=== PATIENT | male | born 1975 | race Caucasian/White ===

== ENCOUNTER 2020-06-23 00:42 | Observation (INO) ==
[2020-06-23] MEDS ORDERED: ceFAZolin 2000MG 2,000 MG/15 ML SYR IV STA (00:58)
[2020-06-23] MEDS ORDERED: DIPHTHERIA/TETANUS/PERTUSSIS 0.5 ML SYR/VIAL IM ONE (01:03)
[2020-06-23 01:31] LABS: Hematocrit (blood only) 41.8 % (42-52); Hemoglobin 14.5 g/dL (14.0-18.0); Mean Corpuscular Hemoglobin 30.3 pg (25-34); Mean Corpuscular Hgb Conc 34.7 g/dL (32-36); Mean Corpuscular Volume 87.4 fL (80-100); RDW Coefficient of Variation 12.7 % (11.5-14.5); RDW Standard Deviation 40.6 fL (36.4-46.3); Red Blood Count 4.78 M/uL (4.7-6.1); White Blood Count 10.49 K/uL (4.8-10.8)
[2020-06-23 01:32] LABS: Basophils # (auto) 0.03 K/uL (0-0.2); Basophils % (auto) 0.3 %; Eosinophils # (auto) 0.45 K/uL (0-0.5); Eosinophils % (auto) 4.3 %; Immature Granulocytes # (auto) 0.02 K/uL (0.00-0.02); Immature Granulocytes % (auto) 0.2 %; Lymphocytes # (auto) 4.35 K/uL (1.2-3.4); Lymphocytes % (auto) 41.5 %; Mean Platelet Volume 8.7 fL (7.4-10.4); Monocytes # (auto) 0.88 K/uL (0.11-0.59); Monocytes % (auto) 8.4 %; Neutrophils # (auto) 4.76 K/uL (1.4-6.5); Neutrophils % (auto) 45.3 %; Platelet Count 313 K/uL (130-400)
[2020-06-23 01:43] LABS: Albumin Level 4.3 gm/dl (3.4-5.0); BUN Creatinine Ratio 12.7 (10-20); Calcium 8.3 mg/dl (8.5-10.1); Creatinine Clr Calc Pharmacy 100.9 ml/min; Est GFR (African American) 96.2; Potassium 3.1 mmol/L (3.5-5.1)
[2020-06-23 01:46] LABS: Albumin Globulin Ratio 1.3 (0.9-2); Bilirubin,Total 0.5 mg/dl (0.2-1); Globulin 3.3 gm/dl (2.5-4.0); Total Protein 7.6 gm/dl (6.4-8.2)
[2020-06-23] MEDS ORDERED: fentaNYL citrate 100 MCG/2 ML VIAL ONE ×2 (02:57→05:15)
[2020-06-23] MEDS ORDERED: DEXAMETHASONE SOD INJ 4 MG/ML VIAL ONE (02:57)
[2020-06-23] MEDS ORDERED: PROPOFOL IV EMULSION 10 MG/ML 20 ML VIAL IV ONE (02:57)
[2020-06-23] MEDS ORDERED: ONDANSETRON INJ 2 MG/ML 2 ML VIAL ONE (02:57)
[2020-06-23] MEDS ORDERED: SUCCINYLCHOLINE CHLORIDE 20 MG/ML 10 ML VIAL IV ONE (02:57)
--- NOTE | 2020-06-23 03:11 | Anesthesiology Consultation ---
Date of Service June 23, 2020 Assessment & Plan (1) Encounter for pre-operative examination: Chart Review Chart Review: Acceptable Risk for Surgery and Patient NOT seen in Pre Admission Testing Anesthesia plan explained to patient and . signed the consent on patient's behalf as patient currently intoxicated. All questions answered. Consults Requested none covid neg 06/23/2020 History Surgery Operation Date: 06/23/20 03:30 Proposed Procedures p Open Reduction Internal Fixation Hand(Left) - Hung Nuñez DO s Incision and Drainage Extremity(Left) - Hung Nuñez DO Height/Weight Height: 5 ft 10 in Weight: 94.8 kg Allergies Allergy/AdvReac Type Severity Reaction Status Date / Time No Known Allergies Allergy Verified 06/23/20 01:03 Medications Home Medications Medication Instructions Recorded Confirmed Last Taken atorvastatin 40 mg PO HS 10/10/19 06/23/20 06/22/20 acetaminophen [Tylenol Extra 500 - 1,000 mg PO Q6H PRN 12/03/19 06/23/20 Unknown Strength] turmeric root extract 500 mg PO BID 12/03/19 06/23/20 06/22/20 NPO Date Last Intake of Fluids: 06/23/20 Time Last Intake of Fluids: 00:30 Date Last Intake of Solids: 06/22/20 Time Last Intake of Solids: 18:00 Social History Smoking Status: Never smoker Do You Dip or Chew Tobacco: No Hx Alcohol Use: Yes Hx Substance Use: No Physical Exam Vital Signs Last Vital Signs Temp 36.6 C 06/23/20 00:50 Pulse 106 H 06/23/20 03:00 Resp 21 06/23/20 03:00 BP 127/81 06/23/20 03:00 Pulse Ox 96 06/23/20 03:00 Testing Laboratory Results 06/23/20 00:59 06/23/20 00:59
[2020-06-23] MEDS ORDERED: ePHEDrine sulfate 50 MG/ML AMP IV PRN (03:22)
[2020-06-23] MEDS ORDERED: ATROPINE SULFATE 0.1 MG/ML 10ML SYR IV PRN (03:22)
[2020-06-23] MEDS ORDERED: ONDANSETRON INJ 2 MG/ML 2 ML VIAL IV PRN ×2 (03:22→05:12)
[2020-06-23] MEDS ORDERED: HYDROmorphone INJ 1 MG/ML SYRINGE IV PRN (03:22)
[2020-06-23] MEDS ORDERED: BACITRACIN INJ 50,000 UNIT VIAL ONE (03:32)
[2020-06-23] MEDS ORDERED: BUPIVACAINE 0.5 % 5 MG/1 ML MPF 30ML VIAL ONE (03:32)
--- NOTE | 2020-06-23 03:51 | History & Physical Bridge Note ---
Date of Service June 23, 2020 History & Physical Bridge Note I have examined the patient, reviewed the History & Physical and in the interval since the performance of the History & Physical I have noted the following changes of clinical significance: Will require open reduction left hand 2/3/4 metacarpophalangeal joint dislocations in OR.
[2020-06-23] MEDS ORDERED: NEOSTIGMINE METHYLSULFATE 5 MG/5 ML SYR ONE (04:21)
[2020-06-23] MEDS ORDERED: GLYCOPYRROLATE 0.2 MG/ML VIAL ONE (04:21)
[2020-06-23] MEDS ORDERED: ROCURONIUM BROMIDE 10 MG/ML 5 ML VIAL IV ONE (04:21)
--- NOTE | 2020-06-23 05:04 | Post Operative Brief Note ---
Immediate Post Op Note v1 Date of Surgery June 23, 2020 Pre & Post Diagnosis Operation Date: 06/23/20 03:30 Preop diagnosis: Left hand open dislocations of the second, third and fourth metacarpal phalangeal joints, complex laceration left hand volar palm 10 cm Postop diagnosis:Left hand open dislocations of the second, third and fourth metacarpal phalangeal joints, complex laceration left hand volar palm 10 cm I identified the patient and participated in the time-out.: Yes Procedure Operation Date: 06/23/20 03:30 Procedure: 1. Open reduction left hand second, third and fourth metacarpal phalangeal joint dislocations, 2. Irrigation and debridement open dislocations left hand second, third and fourth metacarpal phalangeal joints, 3. Repair complex laceration left hand volar palm 10 cm in length Surgeon Hnug Nuñez DO Business Instructor None Estimated Blood Loss 3 Findings Consistent with Post-Op Diagnosis Specimens None Anesthesia Type General Complications none Disposition Accompanied Patient To Recovery: No Disposition: Recovery Room
[2020-06-23] MEDS ORDERED: oxyCODONE/ACETAMINOPHEN 5mg/325mg TAB PO PRN (05:12)
[2020-06-23] MEDS: fentaNYL citrate 100 MCG/2 ML VIAL IV PRN ×4 (05:15→05:30)
--- NOTE | 2020-06-23 05:17 | Consultation Report ---
DATE OF CONSULTATION: 06/23/2020 EMERGENCY ROOM CONSULTATION TIME: 3:00 a.m. PERTINENT HISTORY: This is a 44-year-old right-hand dominant gentleman who had been drinking this evening until about 12:00 or 12:30. This evening he had a grand total of approximately 12 beers. He fell on his deck and on his outstretched right upper extremity, hyperextended, second, third and fourth metacarpophalangeal joints resulting in open dislocation of the second, third, and fourth metacarpophalangeal joints. The metacarpal heads then lodged in place in open position, exposed. Then transported to [facility], seen and evaluated by the Emergency Department physician. Radiographs were obtained, orthopedics was consulted. The patient had no loss of consciousness, no head or neck trauma. Landed in a relatively clean environment. It was cleansed at home and wrapped in gauze at the ER. PAST MEDICAL HISTORY: Hypercholesterolemia, reflux, possible alcoholism. PAST SURGICAL HISTORY: Denies. ALLERGIES: No known drug allergies. MEDICATIONS: Atorvastatin, naproxen, ondansetron, acetaminophen, turmeric root extract. SOCIAL HISTORY: He is , works for [employer]. He denies tobacco use. Drinks alcohol regularly. Denies drug use. PHYSICAL EXAMINATION: This is a clearly intoxicated 44-year-old gentleman with present at bedside, slurred speech, and does not answer questions without multiple prompts. Focused exam of the right hand demonstrates gauze bandage in place. Fingers are pink and warm. Radial pulse 2/4. Radial, ulnar, and median nerve sensory and motor function are intact to the level of the wrist; however, he has some disturbance at the second, third, and fourth digits due to open dislocations of the second, third, and fourth metacarpal heads to the volar aspect of the palm. Locked in place and he has some spasm preventing easy reduction. Skin is well perfused. Obvious deformity. IMAGING DATA: Radiographs reflect second, third and fourth metacarpophalangeal joint dislocations with volar extrusion of the metacarpal heads through the soft tissue. No other obvious fracture is noted. IMPRESSION: Right hand open second, third, and fourth metacarpophalangeal joint dislocations without evidence of fracture. Soft tissue swelling, mild. RECOMMENDATION: Open reduction under anesthesia of second, third and fourth metacarpophalangeal joint dislocations with irrigation and debridement of the open dislocations, possible percutaneous pinning as necessary. Discussed all potential risks, benefits, complications, alternatives, rehab, possibility of loss of function, possibility of infection, need for secondary surgery, was discussed with the patient and his who was present at the bedside. They understood the potential risks, signed consent. Currently n.p.o. To OR when available.
--- NOTE | 2020-06-23 06:28 | Anesthesiology Progress Note ---
Date of Service June 23, 2020 Anesthesia Post Procedure Vital Signs Vital Signs: Temp Pulse Pulse Resp BP BP Pulse Ox 06/23/20 05:45 36.4 C L 919 H 14 124/82 99 06/23/20 05:40 91 H 14 126/82 100 06/23/20 05:30 97 H 14 134/79 100 06/23/20 05:20 83 14 126/86 99 06/23/20 05:11 36.4 C L 101 H 14 135/71 99 06/23/20 03:00 106 H 21 127/81 96 06/23/20 02:45 107 H 23 120/82 97 06/23/20 02:30 108 H 22 127/94 98 06/23/20 02:15 101 H 21 131/88 95 06/23/20 02:00 101 H 16 123/92 98 06/23/20 01:45 96 H 17 134/92 97 06/23/20 01:30 102 H 18 133/95 100 06/23/20 01:15 98 H 12 133/95 98 06/23/20 00:50 36.6 C 92 H 20 132/92 99 Pain Intensity Left Hand: Pain Intensity: 7 Transfer of Care Handoff Completed per policy Notes Mental Status: alert / awake / arousable and participated in evaluation Patient Amnestic to Procedure: Yes Nausea / Vomiting: adequately controlled Pain: adequately controlled Airway Patency, RR, SpO2: stable & adequate BP & HR: stable & adequate Hydration State: stable & adequate Anesthetic Complications: no major complications apparent and Pt Satisfied with anesthetic care
[2020-06-23] MEDS: SODIUM CHLORIDE 0.9% 1000ML 1,000 ML IV SCH ×2 (06:30→16:02)
--- NOTE | 2020-06-23 07:26 | Fluoroscopy Report ---
FL hand LT 2V CLINICAL HISTORY: Closed reduction. COMPARISON STUDY: Left hand radiographs June 23, 2020. FLUOROSCOPY TIME: 5.9 seconds. FLUOROSCOPIC IMAGES: 2. FINDINGS: Fluoroscopy was performed during reduction of the left second, third and fourth metacarpoph alangeal joint dislocations. Alignment appears anatomic on this exam. Sensitivity for detection of fr actures is diminished on this exam but none are identified. IMPRESSION: Fluoroscopy provided during reduction of the left second, third and fourth metacarpophal angeal joint dislocations. ACT 112: Negative or not required by law. Electronically signed by: Agustín Miller M.D. 06/23/2020 7:25 AM
--- NOTE | 2020-06-23 07:35 | Emergency Department Note ---
Impression & Plan Dislocation of MCP joint of hand, Alcohol intoxication, Fall ED Provider Note NAME: KATHERYN SAM AGE: 44 SEX: M ARRIVES VIA: Walk-In INFORMANT: Patient, ED PROVIDER(S): Bree Del Angel DO CHIEF COMPLAINT: Left hand pain/ fall PLAN: Disposition: to the OR with Dr. Nuñez Condition: stable MEDICAL DECISION MAKING: This is a 44-year-old male patient who was drinking alcohol tonight and tripped and fell on an outstretched left hand causing an open dislocation of the metacarpal phalangeal joints. The patient denies injuring any other part of his body during this fall. X-rays confirm no acute fractures. The case was discussed with Dr. Nuñez and he will take the patient the OR for washout and repair of this open dislocation Triage Nursing notes reviewed and agree them. Additional history obtained from the patient's who was at the bedside Vital Signs: reviewed and unremarkable Differential diagnosis: Open fracture, hand fracture, dislocation ER treatment provided: IV cefazolin; Adacel Diagnostics interpreted by me: Imaging studies: As per my interpretation-left hand x-ray: Volar dislocation of the second third and fourth metacarpal phalangeal joint Consultation(s): Dr. Nuñez from orthopedics HPI: 44/M arrives for evaluation of left hand injury. The patient suffered a fall tonight on an outstretched left hand onto a concrete slab. The patient had been drinking a moderate amount of alcohol. He did not strike his head or lose consciousness. ROS: See above HPI for pertinent positives & negatives. A total of 10 systems reviewed and were otherwise negative. PAST MEDICAL HISTORY:Hypercholesterolemia SOCIAL HISTORY:The patient is ; he drinks alcohol; he does [employer] work for a living HOME MEDICATIONS:See list ALLERGIES:None VITALS:See Below PHYSICAL EXAMINATION: HEENT: Head - normocephalic and atraumatic. Pupils are equal, round, and reactive to light. There is moderate scleral injection extraocular eye muscles are intact and sclera are anicteric. Ears - bilaterally patent canals with no evidence of hemotympanum. Nose - moist nasal mucosa without evidence of trauma or discharge. Mouth - moist buccal mucosa with no trauma to the teeth or signs of malocclusion. Neck: The neck is supple and there is no pain to palpation over the posterior cervical spine and no obvious step-offs or deformities. There is no JVD or tracheal deviation. Chest: There are no signs of deformities, contusions or abrasions to the chest wall. There is no obvious crepitus or paradoxical chest rise. Heart: Regular, rate, and rhythm. There is a normal S1 and S2 with no murmurs, clicks, or gallops appreciated. Lungs: Clear to auscultation bilaterally with no wheezes, rales, or rhonchi. Abdomen: Soft, completely nontender, nondistended, with good bowel sounds. There is no sign of trauma such as contusions, abrasions or penetrations. There are no palpable pulsatile masses or hepatosplenomegaly. There is no guarding, rigidity, or rebound noted. Pelvis: Stable to rock and compression. Extremities: There is an abrasion to the patient's left knee. The left hand is obviously deformed. He has open dislocations to the second third and fourth metacarpophalangeal joints that protrude through the volar surface of the hand. There is minimal bleeding. There is a ring on the ring finger that will need removed. The third and fourth digits of 5-6-second capillary refill and they are cold to touch. The second digit has normal capillary refill and is warm to touch. Neuro: The patient is awake and alert and easily able to follow commands. Muscle strength is 5 out of 5 in all 4 extremities. Otherwise, neuro exam is unremarkable. ED COURSE: The patient was immediately evaluated in room B1 upon EMS arrival. The hand was quickly evaluated and x-rayed. Daily and soaked gauze was applied to the exposed bones and wrapped with a bulky dressing. The ring was successfully removed. The digits were positioned in such a way that the capillary refill improved in the third and fourth digit in the digits were then warm to touch. An IV lock was initiated Laboratory studies were drawn as above. The patient was given Adacel and 2 g of IV cefazolin. 0120: I discussed the case with Dr. Nuñez. He will come to the emergency department to take the patient to the OR for a washout and repair. Bree Del Angel DO Past Med/Surg History Social History Smoking Status: Never smoker Tobacco Type: Cigarettes Second Hand Exposure: No; Do You Dip or Chew Tobacco: No; Tobacco Cessation Education Requested by Patient: No Hx Alcohol Use: Yes Alcohol type: beer Hx Substance Use: No Preferred Language: [place] Beliefs That Will Affect Care: None Current Living Situation: Family Other Information That Helps Us Care for You: No Feels Safe at Home: Yes Safety Concerns: Feels Safe At This Time Assistive Devices: None Allergies Allergies Allergy/AdvReac Type Severity Reaction Status Date / Time No Known Allergies Allergy Verified 06/23/20 01:03 Home Meds Home Medications Medication Instructions Recorded Confirmed atorvastatin 40 mg PO HS 10/10/19 06/23/20 acetaminophen [Tylenol Extra 500 - 1,000 mg PO Q6H PRN 12/03/19 06/23/20 Strength] turmeric root extract 500 mg PO BID 12/03/19 06/23/20 Results & Data (ED) Vital Signs Vital Signs - 24 hr 06/23/20 00:50 06/23/20 01:15 06/23/20 01:30 Temperature 36.6 C Temperature Source Oral Pulse Rate 92 H Pulse Rate [Apical] 98 H 102 H Pulse Rhythm Regular Pulse Strength Normal Respiratory Rate 20 12 18 Respiratory Effort / Characteristics Non-Labored Spontaneous Non-Labored Spontaneous Respiratory Depth Normal Normal Normal Respiratory Pattern Blood Pressure 132/92 Blood Pressure [Right Arm] 133/95 133/95 Blood Pressure Mean 105 Blood Pressure Mean [Right Arm] 107 107 Blood Pressure Position Sitting Blood Pressure Position [Right Arm] Pulse Oximetry 99 98 100 Oxygen Delivery Method Room Air Room Air Room Air Oxygen Flow Rate Sepsis Recent Fever Within 48 Hours No Sepsis New/Unexplained Change in Mental Status N/A Sepsis Action Taken by Nursing No Action Required 06/23/20 01:45 06/23/20 02:00 06/23/20 02:15 Temperature Temperature Source Pulse Rate Pulse Rate [Apical] 96 H 101 H 101 H Pulse Rhythm Pulse Strength Respiratory Rate 17 16 21 Respiratory Effort / Characteristics Non-Labored Spontaneous Respiratory Depth Normal Normal Normal Respiratory Pattern Blood Pressure Blood Pressure [Right Arm] 134/92 123/92 131/88 Blood Pressure Mean Blood Pressure Mean [Right Arm] 106 102 102 Blood Pressure Position Blood Pressure Position [Right Arm] Pulse Oximetry 97 98 95 Oxygen Delivery Method Room Air Room Air Room Air Oxygen Flow Rate Sepsis Recent Fever Within 48 Hours Sepsis New/Unexplained Change in Mental Status Sepsis Action Taken by Nursing 06/23/20 02:30 06/23/20 02:45 06/23/20 03:00 Temperature Temperature Source Pulse Rate Pulse Rate [Apical] 108 H 107 H 106 H Pulse Rhythm Pulse Strength Respiratory Rate 22 23 21 Respiratory Effort / Characteristics Respiratory Depth Normal Normal Normal Respiratory Pattern Blood Pressure Blood Pressure [Right Arm] 127/94 120/82 127/81 Blood Pressure Mean Blood Pressure Mean [Right Arm] 105 94 96 Blood Pressure Position Blood Pressure Position [Right Arm] Pulse Oximetry 98 97 96 Oxygen Delivery Method Room Air Room Air Room Air Oxygen Flow Rate Sepsis Recent Fever Within 48 Hours Sepsis New/Unexplained Change in Mental Status Sepsis Action Taken by Nursing 06/23/20 05:11 Temperature 36.4 C L Temperature Source Axillary Pulse Rate Pulse Rate [Apical] 101 H Pulse Rhythm Pulse Strength Respiratory Rate 14 Respiratory Effort / Characteristics Non-Labored Spontaneous Respiratory Depth Normal Respiratory Pattern Regular Blood Pressure Blood Pressure [Right Arm] 135/71 Blood Pressure Mean Blood Pressure Mean [Right Arm] 92 Blood Pressure Position Blood Pressure Position [Right Arm] Semi-fowlers Pulse Oximetry 99 Oxygen Delivery Method Oxymask Oxygen Flow Rate 10 Sepsis Recent Fever Within 48 Hours Sepsis New/Unexplained Change in Mental Status Sepsis Action Taken by Nursing Laboratory Data Result diagrams: 06/23/20 00:59 06/23/20 00:59 Lab Results 06/23/20 06/23/20 06/23/20 Range/Units 00:59 00:59 00:59 WBC 10.49 (4.8-10.8) K/uL RBC 4.78 (4.7-6.1) M/uL Hgb 14.5 (14.0-18.0) g/dL Hct 41.8 L (42-52) % MCV 87.4 (80-100) fL MCH 30.3 (25-34) pg MCHC 34.7 (32-36) g/dL RDW Std Deviation 40.6 (36.4-46.3) fL RDW Coeff of Melani 12.7 (11.5-14.5) % Plt Count 313 (130-400) K/uL MPV 8.7 (7.4-10.4) fL Immature Gran % (Auto) 0.2 % Neut % (Auto) 45.3 % Lymph % (Auto) 41.5 % [place] % (Auto) 8.4 % Eos % (Auto) 4.3 % Baso % (Auto) 0.3 % Neut # (Auto) 4.76 (1.4-6.5) K/uL Lymph # (Auto) 4.35 H (1.2-3.4) K/uL [place] # (Auto) 0.88 H (0.11-0.59) K/uL Eos # (Auto) 0.45 (0-0.5) K/uL Baso # (Auto) 0.03 (0-0.2) K/uL Immature Gran # (Auto) 0.02 (0.00-0.02) K/uL Sodium 139 (136-145) mmol/L Potassium 3.1 L (3.5-5.1) mmol/L Chloride 105 (98-107) mmol/L Carbon Dioxide 27 (21-32) mmol/L Anion Gap 7.0 (3-11) BUN 14 (7-18) mg/dl Creatinine 1.08 (0.6-1.4) mg/dl Est Cr Clr Drug Dosing 100.9 ml/min Est GFR ( Amer) 96.2 Est GFR (Non-Af Amer) 83.0 BUN/Creatinine Ratio 12.7 (10-20) Glucose 126 H (70-99) mg/dl Calcium 8.3 L (8.5-10.1) mg/dl Total Bilirubin 0.5 (0.2-1) mg/dl AST 24 (15-37) U/L ALT 37 (12-78) U/L Alkaline Phosphatase 78 (45-117) U/L Total Protein 7.6 (6.4-8.2) gm/dl Albumin 4.3 (3.4-5.0) gm/dl Globulin 3.3 (2.5-4.0) gm/dl Albumin/Globulin Ratio 1.3 (0.9-2) Ethyl Alcohol mg/dL 304.0 H (0-3) mg/dl COVID-19 Eval Order SARS-CoV-2, RNA, NAAT (NEGATIVE) 06/23/20 06/23/20 Range/Units 01:38 01:38 WBC (4.8-10.8) K/uL RBC (4.7-6.1) M/uL Hgb (14.0-18.0) g/dL Hct (42-52) % MCV (80-100) fL MCH (25-34) pg MCHC (32-36) g/dL RDW Std Deviation (36.4-46.3) fL RDW Coeff of Melani (11.5-14.5) % Plt Count (130-400) K/uL MPV (7.4-10.4) fL Immature Gran % (Auto) % Neut % (Auto) % Lymph % (Auto) % [place] % (Auto) % Eos % (Auto) % Baso % (Auto) % Neut # (Auto) (1.4-6.5) K/uL Lymph # (Auto) (1.2-3.4) K/uL [place] # (Auto) (0.11-0.59) K/uL Eos # (Auto) (0-0.5) K/uL Baso # (Auto) (0-0.2) K/uL Immature Gran # (Auto) (0.00-0.02) K/uL Sodium (136-145) mmol/L Potassium (3.5-5.1) mmol/L Chloride (98-107) mmol/L Carbon Dioxide (21-32) mmol/L Anion Gap (3-11) BUN (7-18) mg/dl Creatinine (0.6-1.4) mg/dl Est Cr Clr Drug Dosing ml/min Est GFR ( Amer) Est GFR (Non-Af Amer) BUN/Creatinine Ratio (10-20) Glucose (70-99) mg/dl Calcium (8.5-10.1) mg/dl Total Bilirubin (0.2-1) mg/dl AST (15-37) U/L ALT (12-78) U/L Alkaline Phosphatase (45-117) U/L Total Protein (6.4-8.2) gm/dl Albumin (3.4-5.0) gm/dl Globulin (2.5-4.0) gm/dl Albumin/Globulin Ratio (0.9-2) Ethyl Alcohol mg/dL (0-3) mg/dl COVID-19 Eval [facility] SARS-CoV-2, RNA, NAAT NEGATIVE (NEGATIVE) Administered Medications Acetaminophen (Acetaminophen 325 Mg Tab) 650 mg PO Q6H PRN PRN Reason: Fever or Headache Stop: 07/23/20 05:11 Last Admin: 06/24/20 08:38 Dose: 650 mg Documented by: [id number] Admin: 06/23/20 08:54 Dose: 650 mg Documented by: [id number] Aspirin (Aspirin 81 Mg Ectab) 81 mg PO QAM [facility] Stop: 07/23/20 08:59 Last Admin: 06/24/20 07:50 Dose: 81 mg Documented by: [id number] Admin: 06/23/20 08:55 Dose: Not Given Documented by: [id number] Docusate Sodium (Docusate Sodium 100 Mg Cap) 100 mg PO BID [facility] Stop: 07/23/20 08:59 Last Admin: 06/24/20 07:50 Dose: Not Given Documented by: [id number] Admin: 06/23/20 20:29 Dose: Not Given Documented by: [id number] Admin: 06/23/20 08:55 Dose: Not Given Documented by: [id number] Sodium Chloride (Nss 1000ml) 1,000 mls @ 100 mls/hr IV .Q10H [facility] Stop: 07/23/20 05:14 Last Admin: 06/24/20 01:15 Dose: 100 mls/hr Documented by: [id number] Infusion: 06/24/20 01:15 Dose: 100 mls/hr Documented by: [id number] Admin: 06/23/20 16:02 Dose: 100 mls/hr Documented by: [id number] Infusion: 06/23/20 16:02 Dose: 100 mls/hr Documented by: [id number] Infusion: 06/23/20 14:07 Dose: 100 mls/hr Documented by: [id number] Admin: 06/23/20 06:30 Dose: 100 mls/hr Documented by: [id number] Ketorolac Tromethamine (Ketorolac 30 Mg/Ml Vial) 30 mg IV Q8 PRN PRN Reason: Pain Stop: 06/28/20 05:11 Last Admin: 06/24/20 07:50 Dose: 30 mg Documented by: [id number] Admin: 06/23/20 16:01 Dose: 30 mg Documented by: [id number] Admin: 06/23/20 08:16 Dose: 30 mg Documented by: [id number] Discontinued Medications Bacitracin (Bacitracin Inj 50,000 Unit Vial) Confirm Administered Dose 100,000 units .ROUTE .STK-MED ONE Stop: 06/23/20 03:33 Last Admin: 06/23/20 04:45 Dose: 50,000 units Documented by: [id number] Bupivacaine HCl (Bupivacaine 0.5 % 5 Mg/1 Ml Mpf 30ml Vial) Confirm Administered Dose 30 ml .ROUTE .STK-MED ONE Stop: 06/23/20 03:33 Last Admin: 06/23/20 05:18 Dose: 30 ml Documented by: [id number] Diphtheria/Pertussis/Tetanus Vacc (Diphtheria/Tetanus/Pertussis 0.5 Ml Syr/Vial) 0.5 ml IM .ONCE ONE Stop: 06/23/20 01:04 Last Admin: 06/23/20 01:11 Dose: 0.5 ml Documented by: [id number] Fentanyl Citrate (Fentanyl Citrate 100 Mcg/2 Ml Vial) 25 mcg IV Q5M PRN PRN Reason: PACU Use Only-Pain Stop: 06/23/20 11:22 Last Admin: 06/23/20 05:30 Dose: 25 mcg Documented by: [id number] Admin: 06/23/20 05:25 Dose: 25 mcg Documented by: [id number] Admin: 06/23/20 05:20 Dose: 25 mcg Documented by: [id number] Admin: 06/23/20 05:15 Dose: 25 mcg Documented by: [id number] Fentanyl Citrate (Fentanyl Citrate 100 Mcg/2 Ml Vial) Confirm Administered Dose 100 mcg .ROUTE .STK-MED ONE Stop: 06/23/20 05:16 Last Admin: 06/23/20 06:02 Dose: Not Given Documented by: [id number] Cefazolin Sodium (Ancef 2000mg) 2,000 mg in 15 mls @ 3.75 mls/min IV NOW STA Stop: 06/23/20 01:01 Last Admin: 06/23/20 01:02 Dose: 3.75 mls/min Documented by: [id number] Cefazolin Sodium (Ancef 2000mg) 2,000 mg in 15 mls @ 3.75 mls/min IV Q8H TIO; Protocol Stop: 06/24/20 08:59 Last Admin: 06/24/20 01:44 Dose: 3.75 mls/min Documented by: [id number] Admin: 06/23/20 17:20 Dose: 3.75 mls/min Documented by: [id number] Admin: 06/23/20 08:55 Dose: 3.75 mls/min Documented by: [id number] Discharge Plan Visit Data Chief Complaint: Hand Injury/Pain Stated Complaint: BONE THROUGH L HAND-TRIPPED AND FELL ED Provider: Bree Del Angel Discharge Problem: Dislocation of MCP joint of hand, Alcohol intoxication, Fall Patient Disposition: Admitted As Inpatient Discharge Instructions Interventions: ED Discharge Assessment Last Done: 06/23/20 03:11 Discharge Problem: Dislocation of MCP joint of hand Qualifiers: Encounter type: initial encounter Qualified Code(s): S63.269A - Dislocation of metacarpophalangeal joint of unspecified finger, initial encounter Alcohol intoxication Qualifiers: Complication of substance-induced condition: with unspecified complication Qualified Code(s): F10.929 - Alcohol use, unspecified with intoxication, unspecified Fall Qualifiers: Encounter type: initial encounter Qualified Code(s): W19.XXXA - Unspecified fall, initial encounter
--- NOTE | 2020-06-23 07:53 | XRay Report ---
XR hand LT min 3V routine CLINICAL HISTORY: hand fracture. Open injury. COMPARISON: Left hand radiographs February 23, 2018. FINDINGS: Note is made of left second, third and fourth metacarpophalangeal joint dislocations. Spec ifically, the proximal phalanges of these digits are dislocated dorsally with respect to the metacarp al heads. There is suspected associated volar extrusion of several metacarpal heads. No additional fr actures are identified. Tiny radiodensities project over the left hand. This may reflect debris, like ly on the hand. IMPRESSION: Left second, third and fourth metacarpophalangeal joint dislocations with suspected vola r extrusion of several metacarpal heads which could be correlated with physical exam. No additional f ractures identified. ACT 112: Negative or not required by law. Electronically signed by: Agustín Miller M.D. 06/23/2020 7:51 AM
[2020-06-23] MEDS: KETOROLAC 30 MG/ML VIAL IV PRN ×2 (08:16→16:01)
--- NOTE | 2020-06-23 08:37 | Orthopedic Progress Note ---
Date of Service June 23, 2020 Assessment & Plan (1) Dislocation of MCP joint of hand: Admission and Anticipated Discharge Date Admission Date: 44 yo male stable POD #1 s/p left hand open reduction 2nd, 3rd, and 4th MCP joint dislocations and wound closure 1. Med management 2. DVT prophylaxis- SCDs 3. PT/OT 4. D/C planning- home today/tomorrow Subjective Pt resting in bed, moderate pain left hand Physical Exam Physical Exam: Dressing/splint intact left hand Results & Data ([facility]) Vital Signs (Past 12 Hours) Vital Signs Temp Pulse Pulse Pulse Resp BP BP 06/23/20 08:08 99 H 16 115/77 06/23/20 07:13 99 H 16 135/82 06/23/20 06:30 36.9 C 99 H 16 132/83 06/23/20 06:14 36.4 C L 88 16 132/84 06/23/20 05:45 36.4 C L 919 H 14 124/82 06/23/20 05:40 91 H 14 126/82 06/23/20 05:30 97 H 14 134/79 06/23/20 05:20 83 14 126/86 06/23/20 05:11 36.4 C L 101 H 14 135/71 06/23/20 03:00 106 H 21 127/81 06/23/20 02:45 107 H 23 120/82 06/23/20 02:30 108 H 22 127/94 06/23/20 02:15 101 H 21 131/88 06/23/20 02:00 101 H 16 123/92 06/23/20 01:45 96 H 17 134/92 06/23/20 01:30 102 H 18 133/95 06/23/20 01:15 98 H 12 133/95 06/23/20 00:50 36.6 C 92 H 20 132/92 Pulse Ox 06/23/20 08:08 97 06/23/20 07:13 97 06/23/20 06:30 99 06/23/20 06:14 100 06/23/20 05:45 99 06/23/20 05:40 100 06/23/20 05:30 100 06/23/20 05:20 99 06/23/20 05:11 99 06/23/20 03:00 96 11/08/20 02:45 97 06/23/20 02:30 98 06/23/20 02:15 95 06/23/20 02:00 98 06/23/20 01:45 97 06/23/20 01:30 100 06/23/20 01:15 98 06/23/20 00:50 99 Laboratory Results 06/23/20 06/23/20 06/23/20 Range/Units 01:38 01:38 00:59 WBC (4.8-10.8) K/uL RBC (4.7-6.1) M/uL Hgb (14.0-18.0) g/dL Hct (42-52) % MCV (80-100) fL MCH (25-34) pg MCHC (32-36) g/dL RDW Std Deviation (36.4-46.3) fL RDW Coeff of Melani (11.5-14.5) % Plt Count (130-400) K/uL MPV (7.4-10.4) fL Immature Gran % (Auto) % Neut % (Auto) % Lymph % (Auto) % [place]oshone % (Auto) % Eos % (Auto) % Baso % (Auto) % Neut # (Auto) (1.4-6.5) K/uL Lymph # (Auto) (1.2-3.4) K/uL Shoshone # (Auto) (0.11-0.59) K/uL Eos # (Auto) (0-0.5) K/uL Baso # (Auto) (0-0.2) K/uL Immature Gran # (Auto) (0.00-0.02) K/uL Sodium (136-145) mmol/L Potassium (3.5-5.1) mmol/L Chloride (98-107) mmol/L Carbon Dioxide (21-32) mmol/L Anion Gap (3-11) BUN (7-18) mg/dl Creatinine (0.6-1.4) mg/dl Est Cr Clr Drug Dosing ml/min Est GFR ( Amer) Est GFR (Non-Af Amer) BUN/Creatinine Ratio (10-20) Glucose (70-99) mg/dl Calcium (8.5-10.1) mg/dl Total Bilirubin (0.2-1) mg/dl AST (15-37) U/L ALT (12-78) U/L Alkaline Phosphatase (45-117) U/L Total Protein (6.4-8.2) gm/dl Albumin (3.4-5.0) gm/dl Globulin (2.5-4.0) gm/dl Albumin/Globulin Ratio (0.9-2) Ethyl Alcohol mg/dL 304.0 H (0-3) mg/dl COVID-19 Eval [facility] SARS-[facility]-2, RNA, NAAT NEGATIVE (NEGATIVE) 06/23/20 06/23/20 Range/Units 00:59 00:59 WBC 10.49 (4.8-10.8) K/uL RBC 4.78 (4.7-6.1) M/uL Hgb 14.5 (14.0-18.0) g/dL Hct 41.8 L (42-52) % MCV 87.4 (80-100) fL MCH 30.3 (25-34) pg MCHC 34.7 (32-36) g/dL RDW Std Deviation 40.6 (36.4-46.3) fL RDW Coeff of Melani 12.7 (11.5-14.5) % Plt Count 313 (130-400) K/uL MPV 8.7 (7.4-10.4) fL Immature Gran % (Auto) 0.2 % Neut % (Auto) 45.3 % Lymph % (Auto) 41.5 % [place]oshone % (Auto) 8.4 % Eos % (Auto) 4.3 % Baso % (Auto) 0.3 % Neut # (Auto) 4.76 (1.4-6.5) K/uL Lymph # (Auto) 4.35 H (1.2-3.4) K/uL Shoshone # (Auto) 0.88 H (0.11-0.59) K/uL Eos # (Auto) 0.45 (0-0.5) K/uL Baso # (Auto) 0.03 (0-0.2) K/uL Immature Gran # (Auto) 0.02 (0.00-0.02) K/uL Sodium 139 (136-145) mmol/L Potassium 3.1 L (3.5-5.1) mmol/L Chloride 105 (98-107) mmol/L Carbon Dioxide 27 (21-32) mmol/L Anion Gap 7.0 (3-11) BUN 14 (7-18) mg/dl Creatinine 1.08 (0.6-1.4) mg/dl Est Cr Clr Drug Dosing 100.9 ml/min Est GFR ( Amer) 96.2 Est GFR (Non-Af Amer) 83.0 BUN/Creatinine Ratio 12.7 (10-20) Glucose 126 H (70-99) mg/dl Calcium 8.3 L (8.5-10.1) mg/dl Total Bilirubin 0.5 (0.2-1) mg/dl AST 24 (15-37) U/L ALT 37 (12-78) U/L Alkaline Phosphatase 78 (45-117) U/L Total Protein 7.6 (6.4-8.2) gm/dl Albumin 4.3 (3.4-5.0) gm/dl Globulin 3.3 (2.5-4.0) gm/dl Albumin/Globulin Ratio 1.3 (0.9-2) Ethyl Alcohol mg/dL (0-3) mg/dl COVID-19 Eval Order SARS-CoV-2, RNA, NAAT (NEGATIVE)
[2020-06-23] MEDS: ACETAMINOPHEN 325 MG TAB PO PRN (08:54)
--- NOTE | 2020-06-23 08:54 | Operative Report (OR) ---
DATE OF OPERATION: 06/23/2020 PREOPERATIVE DIAGNOSES: 1. Left hand open dislocation of the second, third and fourth metacarpophalangeal joints. 2. Complex laceration of the left volar palm 10 cm involving skin, subcutaneous and joint capsules of the metacarpophalangeal joints. POSTOPERATIVE DIAGNOSES: 1. Left hand open dislocation of the second, third and fourth metacarpophalangeal joints. 2. Complex laceration of the left volar palm 10 cm involving skin, subcutaneous and joint capsules of the metacarpophalangeal joints. PROCEDURES PERFORMED: 1. Open reduction of left hand second, third and fourth metacarpophalangeal joint open dislocations. 2. Irrigation and debridement of open dislocations of the left hand second, third and fourth metacarpophalangeal joints. 3. Repair of complex laceration, left volar palm 10 cm in length. SURGEON: Hung Nuñez DO. SCIENCE LIAISON: None. ANESTHESIA: General. SPECIMENS: None. DRAINS: None. COMPLICATIONS: None. BLOOD LOSS: 3 mL. PERTINENT HISTORY: This is a 44-year-old gentleman who was intoxicated at home and fell on an outstretched left hand and had immediate pain, deformity and extruded bones through the volar aspect of his left palm. He then presented to [facility] where he was evaluated. Radiographs were obtained and Orthopedics was consulted at that time. The patient was then scheduled for surgery as indicated. All potential risks, benefits, complications, alternatives, rehab potential for incomplete relief of symptoms, need for further surgery, DVT, PE, , persistent pain, swelling, scarring, weakness, neurovascular injury, wound complications, need for further surgery, loss of function were discussed with the patient and his , they both decided to proceed with the procedure as indicated. DESCRIPTION OF PROCEDURE: The patient was taken to the operative suite, placed supine on the operating table. After review of consent and identification of proper operative site, the patient was anesthetized, LMA was placed. Tourniquet was placed high on the left upper extremity over cast padding. Left upper extremity was then sterilely prepped and draped in usual fashion, elevated and tourniquet inflated to 250 mmHg. After surgical timeout was performed, pulsatile lavage was then used to lavage the open extruded second, third and fourth metacarpal heads from the volar aspect of his palm. After this was copiously irrigated, there was noted to be minimal, if any, foreign debris. Next, a scissor and forceps were used to excise devitalized tissue around the second, third and fourth metacarpal heads and the soft tissue including skin, subcutaneous tissue, fat and fascia. The joint capsules were carefully irrigated until clear. Next, open reduction maneuver was performed by placing a blunt Ragnell into the volar soft tissue distally. The wrist was flexed and the proximal phalanges were then migrated over the heads of the metacarpals sequentially beginning in the fourth, then the third and then the second, thus completing the reductions of the open metacarpal joint dislocations. Once this was completed, then final pulsatile lavage was performed until clear. Normal range of motion was obtained. The joints were stable after reduction, no subluxation and radiographs were then used to confirm AP, lateral and oblique views, noting concentric reduction of all the second, third and fourth metacarpal dislocations. No evidence of fracture was noted. Next, a repair of complex laceration 10 cm volar palm was then performed with a 3-0 nylon sutures. Finally, a sterile compressive dressing and a dorsal blocking plaster splint was applied overwrapped with an Luigi wrap. Tourniquet was released. The patient was awakened and taken to recovery in stable condition. I attest to the content of the Intraoperative Record and any orders documented therein. Any exception s are noted below.
[2020-06-23] MEDS: ASPIRIN 81 MG ECTAB PO SCH (08:55)
[2020-06-23] MEDS: DOCUSATE SODIUM 100 MG CAP PO SCH ×2 (08:55→20:29)
[2020-06-23] MEDS: ceFAZolin 2000MG 2,000 MG/15 ML SYR IV SCH ×2 (08:55→17:20)
[2020-06-24] MEDS: SODIUM CHLORIDE 0.9% 1000ML 1,000 ML IV SCH ×2 (01:15→11:58)
[2020-06-24] MEDS: ceFAZolin 2000MG 2,000 MG/15 ML SYR IV SCH (01:44)
[2020-06-24] MEDS: KETOROLAC 30 MG/ML VIAL IV PRN (07:50)
[2020-06-24] MEDS: DOCUSATE SODIUM 100 MG CAP PO SCH (07:50)
[2020-06-24] MEDS: ASPIRIN 81 MG ECTAB PO SCH (07:50)
[2020-06-24] MEDS: ACETAMINOPHEN 325 MG TAB PO PRN (08:38)
--- NOTE | 2020-06-24 12:49 | Orthopedic Progress Note ---
Date of Service June 24, 2020 Assessment & Plan (1) Dislocation of MCP joint of hand: POD 1 s/p 1. Open reduction of left hand second, third and fourth metacarpophalangeal joint open dislocations. 2. Irrigation and debridement of open dislocations of the left hand second, third and fourth metacarpophalangeal joints. 3. Repair of complex laceration, left volar palm 10 cm in length. Plan for dc to home today. Will continue po antibx for 5 days. Follow up with Dr Nuñez in 1 week. Admission and Anticipated Discharge Date Admission Date: June 23, 2020 Subjective POD 1 Pt sitting up eating lunch. No complaints currently. Pain is controlled. Physical Exam Physical Exam: Left hand dressing/splint C/D/I. Fingers pink and warm. Cap refill < 2 seconds. Moving all fingers well. Decreased sensation in the 3rd finger only. All other fingers sensation intact. Results & Data ([facility]) Vital Signs (Past 12 Hours) Vital Signs Temp Pulse Resp BP Pulse Ox 06/24/20 07:05 37.1 C 78 18 133/92 97 06/24/20 02:21 37.1 C 74 16 142/79 H 99 (1) Dislocation of MCP joint of hand Encounter type: initial encounter Qualified Code(s): S63.269A - Dislocation of metacarpophalangeal joint of unspecified finger, initial encounter
--- NOTE | 2020-06-26 13:50 | Discharge Summary (DS) ---
DISCHARGE DIAGNOSES: 1. Left hand open dislocation of the 2nd, 3rd and 4th metacarpophalangeal joints. 2. Complex laceration to the left volar palm 10 cm involving skin, subcutaneous and joint capsules of the metatarsophalangeal joints. CONSULTS: None. COMPLICATIONS: None. PROCEDURES: 1. Open reduction of left hand his second, third and fourth metacarpophalangeal joint open dislocations. 2. Irrigation and debridement of all open dislocations of the left hands 2nd, 3rd and 4th metacarpophalangeal joints. 3. Repair of complex laceration, left volar palm 10 cm in length by Dr. Nuñez on 06/23/2020. BRIEF HISTORY: As dictated in the history and physical. HOSPITAL SUMMARY: The patient was admitted on the above-noted date and underwent the above noted procedure performed, which he tolerated well. On his first postoperative day, he was sitting up in his bed, eating lunch. He had no complaints at that time and pain was controlled. His left hand dressing and splint were clean, dry and intact. Fingers were pink and warm. Capillary refill is less than 2 seconds. He was moving all fingers well. He has some slightly decreased sensation in the third finger only. All other fingers sensation was intact. Vital signs were stable. He was afebrile. He was remaining stable. Pain was controlled and after discussion with Dr. Nuñez was felt he could be discharged to home. For further review, please see chart. LABORATORY AND X-RAY DATA: As per chart. DISCHARGE INSTRUCTIONS: The patient was discharged home in satisfactory condition on 06/24/2020. DIET: Regular. ACTIVITY: Maintain splint until followup with Dr. Nuñez. Gentle range of motion with the hand and fingers. Frequent ice and elevation of the left hand. Call the office if you have any increased pain, not relieved by pain medications. Increased numbness in the fingers, increased swelling or temperature 101.5 or greater. Follow up with Tate Gonzalez PA-C in [address] Nuñez's office for wound check. Please call for appointment if one has not been made for you. DISCHARGE MEDICATIONS: Aspirin 81 mg p.o. q.a.m., cephalexin 500 mg p.o. q.i.d., oxycodone 5 mg p.o. q. 4 hours p.r.n. Resume home meds as listed.
== END 2020-06-24 14:41 | disposition home or self-care (01) ==
LOC: ED 00:42 → ASU 03:11 → 3W 03:11